=== PATIENT | male | born 1965 | race Caucasian/White ===

== ENCOUNTER → 2019-07-14 09:39 | Outpatient (BNVA) | payer OTHER, SELFPAY | PROVIDERS: Family Provider Family Medicine; PCP Family Medicine; Referring Provider Family Medicine; Visit Provider Specialist | DX: M25.562 Pain in left knee (principal); D16.22 Benign neoplasm of long bones of left lower limb | CPT/HCPCS: 73560; 73565 ==

== ENCOUNTER → 2021-05-17 13:08 | Outpatient (BNVA) | payer MEDICARE, SELFPAY | PROVIDERS: Family Provider Family Medicine; PCP Family Medicine; Visit Provider Registered Nurse Neonatal Intensive Care | DX: J02.0 Streptococcal pharyngitis (principal); K04.7 Periapical abscess without sinus | CPT/HCPCS: 87071; 87880 ==

== ENCOUNTER → 2023-03-25 18:31 | Outpatient (BNVA) | payer MEDICARE, SELFPAY | PROVIDERS: Family Provider Family Medicine; PCP Family Medicine; Visit Provider Registered Nurse Neonatal Intensive Care | DX: J02.9 Acute pharyngitis, unspecified (principal) | CPT/HCPCS: 87400; 87880 ==

== ENCOUNTER → 2023-07-30 14:36 | Outpatient (BNVA) | payer OTHER, SELFPAY | PROVIDERS: Family Provider Family Medicine; PCP Family Medicine; Referring Provider Family Medicine; Visit Provider Specialist | DX: M16.0 Bilateral primary osteoarthritis of hip | CPT/HCPCS: 73523; 99214 ==

== ENCOUNTER 2023-09-01 15:16 | Outpatient (CLI) | payer OTHER, SELFPAY ==
--- NOTE | 2023-09-01 15:15 | MR_ITS ---
WS: [id number] EXAMINATION: MR hip RT wo con* [id number] ORDER DATE: 09/01/2023 3:19 PM COMPARISON: None HISTORY: right hip pain CONTRAST: None. TECHNIQUE: Coronal STIR of the Pelvis. Coronal proton density, coronal T1, axial T2 fat sat, axial T1 , sagittal T2 fat sat, and sagittal T1 performed of the hip. . FINDINGS: Some images are degraded by motion. Patient to return for LEFT hip imaging. 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 Mild dysplastic changes of the acetabular roof with i nsufficient coverage of the femoral head. Moderate to advanced degenerative narrowing RIGHT hip. Bone -on-bone articulation in the anterior superior acetabulum. Mild hypertrophic changes about the acetab ulum. Normal bone marrow signal in the RIGHT femoral head and neck. Mild edema in the anterior superior melina tabulum slightly extending into the ilium. Similar appearance of the LEFT acetabulum and ilium. Os ac etabuli bilaterally. Mild degenerative arthritis RIGHT sacroiliac joint. Tiny joint effusion. Proximal femoral shafts are normal in appearance. Normal visualized pubic rami. Normal sacrum. No sac ral insufficiency fractures. IMPRESSION: 1. 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 2. Shallow dysplastic RIGHT acetabulum with insufficient coverage and os acetabuli. 3. Small amount of edema in the anterior superior acetabulum extending into the RIGHT ilium.
== END 2023-09-01 15:17 | disposition home or self-care (01) ==
LOC: RAD 15:17
PROVIDERS: Family Provider Family Medicine; PCP Family Medicine; Visit Provider Specialist
DX: M25.551 Pain in right hip (principal); M25.552 Pain in left hip; M16.11 Unilateral primary osteoarthritis, right hip
CPT/HCPCS: 73721

== ENCOUNTER → 2023-12-03 09:28 | Outpatient (BNVA) | payer OTHER, SELFPAY | PROVIDERS: Family Provider Family Medicine; PCP Family Medicine; Referring Provider Family Medicine; Visit Provider Internal Medicine | DX: E03.9 Hypothyroidism, unspecified (principal); R63.5 Abnormal weight gain; Z79.890 Hormone replacement therapy; Z68.38 Body mass index [BMI] 38.0-38.9, adult | CPT/HCPCS: 36415; 84439; 84443; 86376; 86800; 99204 ==

== ENCOUNTER 2024-02-04 07:55 | Outpatient (CLI) | payer OTHER, SELFPAY ==
[2024-02-04 08:42] LABS: Free T4 Free Thyroxine 1.38 ng/dL (0.82-1.77); Thyroid Stimulating Hormone 3.08 uIU/mL (0.27-4.20)
== END 2024-02-04 07:56 | disposition home or self-care (01) ==
PROVIDERS: Family Provider Family Medicine; PCP Family Medicine; Visit Provider Internal Medicine
DX: E03.9 Hypothyroidism, unspecified (principal)
CPT/HCPCS: 36415; 84439; 84443

== ENCOUNTER → 2024-02-13 07:57 | Outpatient (BNVA) | payer OTHER, SELFPAY | PROVIDERS: Family Provider Family Medicine; PCP Family Medicine; Visit Provider Internal Medicine | DX: E03.9 Hypothyroidism, unspecified (principal); R63.5 Abnormal weight gain; E06.3 Autoimmune thyroiditis; Z79.890 Hormone replacement therapy; Z68.37 Body mass index [BMI] 37.0-37.9, adult | CPT/HCPCS: 99214 ==

== ENCOUNTER 2024-04-28 08:29 | Outpatient (CLI) | payer OTHER, SELFPAY ==
--- NOTE | 2024-04-28 08:32 | MRR_ITS ---
PROCEDURE INFORMATION: Exam: MR Left Lower Extremity Joint Without Contrast; Hip Exam date and time: 04/28/2024 8:49 AM Age: 58 years old Clinical indication: Pain; Hip; Left; Additional info: Left hip pain TECHNIQUE: Imaging protocol: Magnetic resonance imaging of the left lower extremity joint without contrast. Exam focused on the hip. COMPARISON: CR XR hip BI m 5V wo/w pel* [id number] 07/30/2023 2:29 PM FINDINGS: Bones/joints: Bilateral hip joint alignment is normal. Severe bilateral hip joint space narrowing is greatest superiorly, with severe bilateral femoral head mild bilateral acetabular osteophyte formation. Left femoral head osteophytes extend along the femoral neck region. Mild bone marrow edema in the acetabular roofs is noted, right greater than left. No acute fracture is identified. No evidence of left hip joint effusion. Small right hip joint effusion. Mild subcortical cystic changes in the left acetabular roof with extension into the inferior left iliac bone appear benign. Severe thinning of the articular cartilage of the left femoral head and acetabulum is noted. Regions of well corticated ossification anterior to the left femoral head are noted, for example on series 801, image 21, compatible with incomplete union of the acetabular ossification center versus old fracture fragments. Labrum: Extensive tearing of the anterior superior left acetabular labrum is identified on the small [id number] images. TENDONS: Tendons of iliopsoas group: Unremarkable. No evidence of tear. Tendons of medial compartment of thigh: Unremarkable. No evidence of tear. Tendons of lateral rotators of hip: Unremarkable. No evidence of tear. Tendons of gluteal group: Unremarkable. No evidence of tear. Soft tissues: An ovoid circumscribed T1 hypointense nodule in the fat adjacent to the sigmoid colon on the left is identified on series 801, image 12 measuring 0.9 cm in diameter in the axial plane by 1.6 cm superior to inferior with corresponding intermediate signal intensity on the coronal T2 fat saturation sequence on series 601, image 19. MR/MR hip LT wo con* [id number] IMPRESSION: 1. No acute left hip findings. 2. Bilateral hip primary osteoarthritic changes are severe. 3. 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 4. Tear of the left acetabular labrum. 5. There is an indeterminate ovoid nodular structure adjacent to the left lateral aspect of the sigmoid colon, not definitively representing a normal lymph node. Consider correlation with CT pelvis versus MRI pelvis with and without contrast for further evaluation.
== END 2024-04-28 08:30 | disposition home or self-care (01) ==
LOC: RAD 08:30
PROVIDERS: Family Provider Family Medicine; PCP Family Medicine; Visit Provider Nurse Practitioner Family
DX: Z01.89 Encounter for other specified special examinations (principal); M16.0 Bilateral primary osteoarthritis of hip; R93.89 Abnormal findings on diagnostic imaging of other specified body structures; M25.752 Osteophyte, left hip; S73.192A Other sprain of left hip, initial encounter; X58.XXXA Exposure to other specified factors, initial encounter
CPT/HCPCS: 73721

== ENCOUNTER 2024-05-07 17:41 | Outpatient (CLI) | payer OTHER, SELFPAY ==
[2024-05-07 23:20] LABS: Free T4 Free Thyroxine 1.44 ng/dL (0.82-1.77)
== END 2024-05-07 17:42 | disposition home or self-care (01) ==
PROVIDERS: PCP Family Medicine; Visit Provider Internal Medicine
DX: E03.9 Hypothyroidism, unspecified (principal)
CPT/HCPCS: 36415; 84439; 84443

== ENCOUNTER → 2024-05-11 11:50 | Outpatient (BNVA) | payer OTHER, SELFPAY | PROVIDERS: PCP Family Medicine; Visit Provider Internal Medicine | DX: R63.5 Abnormal weight gain; E06.3 Autoimmune thyroiditis; Z79.890 Hormone replacement therapy; Z68.38 Body mass index [BMI] 38.0-38.9, adult | CPT/HCPCS: 99214 ==

== ENCOUNTER → 2024-06-02 08:51 | Outpatient (BNVA) | payer OTHER, SELFPAY | PROVIDERS: PCP Family Medicine; Visit Provider Specialist | DX: M16.0 Bilateral primary osteoarthritis of hip (principal); E66.9 Obesity, unspecified; Z68.38 Body mass index [BMI] 38.0-38.9, adult | CPT/HCPCS: 73523; 99214 ==

== ENCOUNTER → 2024-06-09 10:46 | Outpatient (BNVA) | payer MEDICARE, SELFPAY | PROVIDERS: PCP Family Medicine; Visit Provider Registered Nurse | DX: I10 Essential (primary) hypertension (principal) | CPT/HCPCS: 80061 ==

== ENCOUNTER 2024-06-18 15:15 | Emergency (ER) | payer MEDICARE, SELFPAY ==
[2024-06-18] VITALS (7 sets, daily range): BP systolic 117–135; BP diastolic 70–78; PULSE 68–78; RESP 18–20; TEMP 36.5; O2SAT 86–98
--- NOTE | 2024-06-18 15:17 | XRR_ITS ---
PROCEDURE INFORMATION: Exam: XR Chest Exam date and time: 06/18/2024 3:32 PM Age: 58 years old Clinical indication: Cough; Additional info: Cough/congestion TECHNIQUE: Imaging protocol: Radiologic exam of the chest. Views: 1 view. COMPARISON: No relevant prior studies available. FINDINGS: Lungs: Unremarkable. No consolidation. Pleural spaces: Unremarkable. No pleural effusion. No pneumothorax. Heart/Mediastinum: Unremarkable. No cardiomegaly. Bones/joints: Unremarkable. XR/XR chest 1V portable [id number] IMPRESSION: No acute findings.
[2024-06-18 16:56] LABS: Covid PCR NEGATIVE (Negative); Influenza A NEGATIVE (Negative); Influenza B NEGATIVE (Negative); Respiratory Syncytial Virus Ce NEGATIVE (Negative)
--- NOTE | 2024-06-18 17:57 | ED_ITS ---
HPI - SOB/Dyspnea 2 General: Chief Complaint: Shortness of Breath/Dyspnea Stated Complaint: coughing/chest congestion Time Seen by Provider: 06/18/24 17:37 Source: patient Mode of arrival: ambulatory Limitations: no limitations History of Present Illness: HPI Narrative: Patient is a 58-year-old male who presents the emergency department complaining of cough and shortness of breath for the past week. Denies history of asthma or COPD, or any other pertinent past medical history. Cough has become more more productive, he has used 1 nebulized breathing treatment at home but this did not help very much. He is not reporting any fever, but does state that he has been having some vomiting and diarrhea though the symptoms have improved. He also was concerned that he had SpO2 reading at home of the mid 70s, reading is low 90s upper 80s here in the ED, however this is with bad waveform and with head probe was found to be on 96% room air. He is reporting some pleuritic chest pain from coughing, denies any pertinent cardiac history. He does have a history of recurrent sinus infections, he comments that he feels like something is in his chest and he cannot cough it up. No other symptoms or pertinent historical factors noted at this time. MD elicited complaint: shortness of breath and cough Onset (ago): day(s) Timing: constant and progressively worsening Severity: moderate Exacerbating factors: coughing Relieving factors: nothing Associated symptoms: Reports vomiting; Deny abdominal pain, chest pain, fever(s), lightheadedness, nausea or palpitations Treatment prior to arrival: bronchodilator Related Data Home Medications ?Medication ?Instructions ?Recorded ?Confirmed [id number] 149-hyal ac PO 07/14/19 06/09/24 [Glucos Chond Cplx Advanced] cholecalciferol (vitamin D3) 50 50 mcg PO DAILY 06/09/24 mcg (2,000 unit) capsule hydrochlorothiazide 12.5 mg capsule 12.5 mg PO DAILY 0 10/11/20 06/09/24 Previous Rx's ?Medication ?Instructions ?Recorded fluticasone propionate 50 1 spray intranasal BID #16 g yolie 10/11/20 mcg/actuation nasal spray,suspension (Flonase Allergy Relief) albuterol sulfate 90 mcg/actuation 2 puff inhalation Q 6H PRN 08/17/21 aerosol inhaler shortness of breath or wheez ing #8.5 grams levothyroxine 175 mcg tablet 175 mcg PO DAILY #30 tabs 05/11/24 lisinopril 5 mg tablet 5 mg PO DAILY #90 tabs 06/09 atorvastatin 80 mg tablet See Rx Instructions .Route 0 06/14/24 .COMPLEX #90 tabs albuterol sulfate 90 mcg/actuation 1 inh inhalation Q6 H PRN shortness 06/18/24 aerosol inhaler of breath or wheezing #6.7 g yolie doxycycline hyclate 100 mg tablet 100 mg PO BID 10 day s #20 tabs 06/18/24 prednisone 20 mg tablet 60 mg (3 x 20 mg) PO ONCE 5 days 06/18/24 #15 tabs Allergies Allergy/AdvReac Type Severity Reaction Status Date / Time No Known Allergies Allergy Verified 06/18/24 15:25 Review of Systems 2 General: Reports: 10 or more systems reviewed and unremarkable except in HPI and below Const: Denies: fever(s), chills or fatigue Eyes: Denies: change in vision ENMT: Denies: throat pain, ear or mastoid pain or nasal discharge Card: Denies: chest pain, palpitations, swelling of feet/ankles or lightheadedness Resp: Reports: dyspnea and productive cough; Denies: wheezing GI: Reports: vomiting and diarrhea; Denies: abdominal pain, nausea or constipation : Denies: flank pain, difficulty urinating, dysuria or urinary frequency Musc: Denies: neck pain, back pain or joint pain Skin/Breast: Denies: rash Neuro: Denies: headache(s), numbness in extremities or weakness in extremities PFSH ED 2 PFSH: Medical History Hypertension Hypothyroid Osteoarthritis Acute sinusitis Surgical History History of appendectomy Family History Family/Other Dementia Denies family history of Diabetes CAD (coronary artery disease) Clotting disorder Hyperlipidemia Psychiatric illness Chronic kidney disease (CKD) Suicide Anesthesia complication Bleeding disorder Family history of premature coronary artery disease Lung disease Cancer Hypertension Stroke Social History Smoking and tobacco/nicotine status: never used tobacco/nicotine Quit status (tobacco/nicotine): has quit using Year quit tobacco: 2014 Alcohol intake: never Substance/Drug Use: never Adopted: No Caregiver/support person: No Lives independently: No Household members: spouse service: Yes status: Discharged branch: [place] Assignments: Outside [employer] ([employer]) Current occupational status: retired Sexually active: Yes Do you think of yourself as: Straight/Heterosexual Current gender identity: Male Physical Exam 2 Const: COMMON NORMALS: no acute distress, patient oriented x3 and no limitations GENERAL APPEARANCE: cooperative, comfortable and well developed ORIENTATION/CONSCIOUSNESS: Yes awake, Yes oriented to person, Yes oriented to place and Yes oriented to time OTHER: Actively coughing, no acute respiratory distress HENMT: COMMON NORMALS: normocephalic, atraumatic, hearing grossly normal bilaterally, moist oral mucous membranes and oropharynx normal HEAD & SCALP: normocephalic and atraumatic Eye: COMMON NORMALS: Equal, round and reactive pupils present, EOMs intact bilaterally and conjunctivae normal CONJUNCTIVA: Yes conjunctivae normal P UPIL: Yes Equal, round and reactive pupils present Neck/C-Spine: COMMON NORMALS: full ROM, supple and no JVD Chest: COMMONS NORMALS: normal inspection of the chest Resp: COMMON NORMALS: normal respiratory effort, No retractions and No use of accessory muscles AUSCULTATION: wheezes expiratory wheezes Cardio: COMMON NORMALS: no JVD, regular rate, regular rhythm, No clicks present (Cardio), No murmurs present (Cardio) and No rub (Cardio) RATE: r egular rate RHYTHM: regular rhythm GI: COMMON NORMALS: Normal to inspection, nondistended, normoactive bowel sounds present, Soft to palpation and non-tender AUSCULTATION: Yes normoactive bowel sounds PALPATION: Yes Soft to palpation RECTAL EXAM: Yes deferred Extremity: COMMON NORMALS: normal to inspection, full ROM, capillary refill normal and no pedal edema Neuro: COMMON NORMALS: patient oriented x3, moves all extremities, no focal motor deficits and no sensory deficits noted SENSORIUM/ORIENTATION: Yes oriented to person, Yes oriented to place and Yes oriented to time Psych: COMMON NORMALS: mental status grossly normal and Normal thought process present THOUGHT PROCESS: Normal thought process present Skin: COMMON NORMALS: no rashes or lesions noted GENERAL SKIN EXAM: no rashes or lesions noted Course 2 Vital Signs: Vital signs: Vital Signs Temperature 97.7 F 06/18/24 15:21 Pulse Rate 74 06/18/24 18:35 Respiratory Rate 18 06/18/24 18:29 Blood Pressure 130/78 06/18/24 18:30 Pulse Oximetry 86 L 06/18/24 19:21 Oxygen Delivery Me thod Room Air 06/18/24 18:30 MDM - SOB/Dyspnea Medical Decision Making Patient presented with 5 days of cough and shortness of breath. He had no pertinent past medical history to report. He has tried a couple of breathing treatments at home, states this has not helped much. There were reports by family at home that his SpO2 was running in the 70s and 80s, here was found to be low however it was deemed that he was having a poor waveform. He was placed on a temporal probe for SpO2, and was noted to be in the mid 90s. On exam he did have some diffuse expiratory wheezing, overall appeared nontoxic and in no acute respiratory distress however. He was given a breathing treatment here, states that he felt much better after this. His lab work all essentially was unremarkable, he was negative for any viral illness here. His ABG was also unremarkable. At this time I think that this is an acute bronchitis with reactive airways disease, however could be an early COPD thus informed him he needs to closely follow-up with primary care for further outpatient spirometry and other workup. At this time we will treat with doxycycline as well as inhaler and steroids, and 1 more breathing treatment is given prior to discharge. Strict return precautions were given, I even offered patient option to admit for observation but he states he would rather treat at home. His oxygen prior to discharge noted to be in the low 90s, however this was while he was sleeping and it does raise when he is awake. Verbalized understanding for return precautions. Lab Data 06/18/24 19:59 06/18/24 18:01 Labs/Radiology: Radiology Impressions Chest X-Ray 06/18/24 15:17 IMPRESSION: No acute findings. Laboratory Results WBC 13.34 10^3/uL (3.29-11.43) H 06/18/24 19:59 Corrected WBC Cancelled 06/18/24 18:01 RBC 4.45 10^6/uL (3.85-5.65) 06/18/24 19:59 Hgb 12.90 g/dL (11.27-16.99) 06/18/24 19:59 Hct 39.0 % (37-53) 06/18/24 19:59 MCV 87.6 fl (82-101) 06/18/24 19:59 MCH 29.0 pg (27-33) 06/18/24 19:59 MCHC 33.1 g/dL (30-55) 06/18/24 19:59 RDW 13.1 % (12.1-15.1) 06/18/24 19:59 Plt Count 322 10^3/cmm (157-399) 06/18/24 19:59 MPV 9.6 fL (7.4-10.4) 06/18/24 19:59 Gran % Cancelled 06/18/24 18:01 Neut % (Auto) 70.5 % 06/18/24 19:59 Lymph % (Auto) 21.8 % 06/18/24 19:59 [place] % (Auto) 6.4 % 06/18/24 19:59 Eos % (Auto) 0.7 % 06/18/24 19:59 Baso % (Auto) 0.3 % 06/18/24 19:59 Neut # (Auto) 9.40 10^3/uL (1.8-7.7) H 06/18/24 19:59 Lymph # (Auto) 2.9 10^3/uL (0.8-4.8) 06/18/24 19:59 [place]yer # (Auto) 0.9 10^3/uL (0.2-0.9) 06/18/24 19:59 Eos # (Auto) 0.1 10^3/uL (0.0-0.8) 06/18/24 19:59 Baso # (Auto) 0.0 10^3/uL (0.0-0.1) 06/18/24 19:59 Absolute Gran (auto) Cancelled 06/18/24 18:01 Nucleated RBC % (auto) 0 % 06/18/24 19:59 Nucleated RBCs # 0.0 /100WBC 06/18/24 19:59 D-Dimer 0.51 ug/mLFEU (0-0.59) 06/18/24 18:01 Specimen Type Arterial 06/18/24 18:17 Sample Site Radial, left 06/18/24 18:17 ABG pH 7.46 (7.35-7.45) H 06/18/24 18:17 ABG pCO2 38.1 mmHg (35-45) 06/18/24 18:17 ABG pO2 54.6 mmHg (80.0-100.0) L 06/18/24 18:17 ABG PO2/FiO2 Ratio 260 06/18/24 18:17 ABG HCO3 27.3 mmol/L (22-26) H 06/18/24 18:17 ABG O2 Saturation 90.3 06/18/24 18:17 ABG Base Excess 3.4 mmol/L (-2.0-2.0) H 06/18/24 18:17 Humberto Test Pos 06/18/24 18:17 A-a O2 Gradient 6.3 mmHg (5-10) 06/18/24 18:17 Hematocrit 39.8 % (42-52) L 06/18/24 18:17 Hgb O2 Saturation 89.1 % (95-100) L 06/18/24 18:17 Carboxyhemoglobin 1.1 %THgb (0.4-20.1) 06/18/24 18:17 Methemoglobin 0.2 % (0.4-1.5) L 06/18/24 18:17 Total Hemoglobin 13.0 g/dL (14-18) L 06/18/24 18:17 Sodium 137.0 mmol/L (131-143) 06/18/24 18:17 Potassium 3.5 mmol/L (3.5-5.0) 06/18/24 18:17 Glucose 101.0 mg/dL (70-115) 06/18/24 18:17 Ionized Calcium 1.1 mmol/L (1.1-1.4) 06/18/24 18:17 O2 Delivery Device Room air 06/18/24 18:17 FiO2 21.0 % 06/18/24 18:17 Manager Supply Chain ID glc 06/18/24 18:17 Sodium 137 mmol/L (136-145) 06/18/24 18:01 Potassium 4.0 mmol/L (3.5-5.1) 06/18/24 18: Chloride 98 mmol/L (98-107) 06/18/24 18:01 Carbon Dioxide 28 mmol/L (22-29) 06/18/24 18: Anion Gap 15.0 (5-19) 06/18/24 18:01 BUN 16 mg/dL (6-20) 06/18/24 18: Creatinine 0.9 mg/dL (0.7-1.2) 06/18/24 18: GFR Calculation 87.0 mL/min (90-130) L 06/18/24 18: Glucose 97 mg/dL (65-115) 06/18/24 18: Calculated Osmolality 285 mOsm/kg (285-295) 06/18/24 18: Calcium 9.1 mg/dL (8.5-10.5) 06/18/24 18: Total Bilirubin 0.6 mg/dL (0.15-1.2) 06/18/24 18: AST 21 U/L (0-40) 06/18/24 18: ALT 42 U/L (0-41) H 06/18/24 18:01 Alkaline Phosphatase 97 U/L (40-130) 06/18/24 18:01 Total Protein 7.6 g/dL (6.6-8.7) 06/18/24 18: Albumin 4.1 g/dL (3.5-5.2) 06/18/24 18: Globulin 3.5 g/dL (1.3-4.6) 06/18/24 18:01 Urine Color Dark yellow (Yellow) A 06/18/24: Urine Appearance Cloudy (CLEAR) A 06/18/24 20:39 Urine pH 6.0 (5-7) 06/18/24 20:39 Ur Specific [place] 1.031 (1.005-1.030) H 06/18/24 20: Urine Protein 1+ (Negative) A 06/18/24 20:39 Urine Glucose (UA) Negative (Normal) 06/18/24 20:39 Urine Ketones Trace (Negative) 06/18/24 20:39 Urine Blood Negative (Negative) 06/18/24 20:39 Urine Nitrate Negative (Negative) 06/18/24 20:39 Urine Bilirubin Negative (Negative) 06/18/24 20:39 Urine Urobilinogen 1.0 mg/dL (Negative) 06/18/24 20:39 Ur Leukocyte Esterase 1+ (Negative) A 06/18/24 20:39 Urine RBC 6-10 /hpf (0-2) 06/18/24 20:39 Urine WBC 11-20 /hpf (0-5) H 06/18/24 20:39 Ur Squamous Epith Cells 6-10 /hpf (0-5) 06/18/24 20:39 Amorphous Sediment Not Reportable 06/18/24 20:39 Urine Bacteria None seen /hpf (NONE) 06/18/24 20:39 Hyaline Casts 8.26 /lpf 06/18/24 20:39 Urine Mucus 3+ /hpf 06/18/24 20:39 Coronavirus (PCR) Negative (Negative) 06/18/24 15:28 Influenza A (PCR) Negative (Negative) 06/18/24 15:28 Influenza Type B (PCR) Negative (Negative) 06/18/24 15:28 RSV (PCR) Negative (Negative) 06/18/24 15:28 All radiology interpretation(s) finalized by discharge Discharge Plan Discharge Patient Disposition: Home Clinical Impression: Acute bronchitis Qualifiers: Bronchitis organism: unspecified organism Qualified Code(s): J20.9 - Acute bronchitis, unspecified RAD (reactive airway disease) Qualifiers: Asthma severity: mild Asthma persistence: intermittent Asthma complication type: with acute exacerbation Qualified Code(s): J45.21 - Mild intermittent asthma with (acute) exacerbation Condition: Stable Prescriptions: New prednisone 20 mg tablet 60 mg PO ONCE 5 Days Qty: 15 0RF albuterol sulfate 90 mcg/actuation HFA aerosol inhaler 1 inh inhalation Q6H PRN (Reason: shortness of breath or wheezing) Qty: 6.7 0RF doxycycline hyclate 100 mg tablet 100 mg PO BID 10 Days Qty: 20 0RF No Action wyxkhvjx-nfeoa-quw 149-hyal ac PO hydrochlorothiazide 12.5 mg capsule 12.5 mg PO DAILY cholecalciferol (vitamin D3) 50 mcg (2,000 unit) capsule 50 mcg PO DAILY fluticasone propionate [Flonase Allergy Relief] 50 mcg/actuation spray,suspension 1 spray intranasal BID Qty: 16 0RF Rx Instructions: administer into each nostril albuterol sulfate 90 mcg/actuation HFA aerosol inhaler 2 puff inhalation Q6H PRN (Reason: shortness of breath or wheezing) Qty: 8.5 0RF levothyroxine 175 mcg tablet 175 mcg PO DAILY Qty: 30 3RF lisinopril 5 mg tablet 5 mg PO DAILY Qty: 90 1RF atorvastatin 80 mg tablet See Rx Instructions .ROUTE .COMPLEX Qty: 90 0RF Dose Instruction: Take 1 tablet by mouth once daily Rx Instructions: Take 1 tablet by mouth once daily Discharge Orders: Discharge ED (Routine); Ordered 06/18/24 Ordered By: Clayton Muñoz Referrals: Ha Corral [Primary Care Provider] - Patient Instructions: Acute Bronchitis (ED), Reactive Airways Disease (ED) Activity Restrictions/Additional Instructions: Doxycycline as prescribed. Use albuterol inhaler as well as continue breathing treatments at home. Prednisone. Please keep monitoring her O2 at home, if it drops below 90% frequently and you start having severe shortness of breath or other concerning symptoms please return to the emergency department immediately as we discussed. Drink plenty of fluids. Follow-up closely with primary care for further outpatient evaluation. Print Language: Nigerian Coding Level of Care Code ED Evaluation Advisor for Quin Urrutia
[2024-06-18] MEDS: ipratropium-albuterol 3 mL Neb INHALATION (18:18)
[2024-06-18 18:24] LABS: D Dimer 0.51 ug/mLFEU (0-0.59)
[2024-06-18 18:27] LABS: Alanine Aminotransferase 42 U/L (0-41); Albumin Level 4.1 g/dL (3.5-5.2); Alkaline Phosphatase 97 U/L (40-130); Aspartate Amino Transferase 21 U/L (0-40); Blood Urea Nitrogen 16 mg/dL (6-20); Calcium 9.1 mg/dL (8.5-10.5); Carbon Dioxide 28 mmol/L (22-29); Chloride 98 mmol/L (98-107); Creatinine Clr Calc Pharmacy 130.5672; Globulin 3.5 g/dL (1.3-4.6); Glucose 97 mg/dL (65-115); Osmolality Calculated 285 mOsm/kg (285-295); Sodium 137 mmol/L (136-145); Total Bilirubin 0.6 mg/dL (0.15-1.2); Total Protein 7.6 g/dL (6.6-8.7)
[2024-06-18 18:29] LABS: ABG PCO2 38.1 mmHg (35-45); ABG PH Result 7.46 (7.35-7.45); Alveolar-Arterial Oxygen Gradi 6.3 mmHg (5-10); Arterial Blood Gas Hematocrit 39.8 % (42-52); Base Excess ABG 3.4 mmol/L (-2.0-2.0); Blood Gas Allen Test Pos; Blood Gas Operator Identificat glc; Blood Gas Sample Site Radial, left; Blood Gas Sample Type Arterial; Carboxyhemoglobin 1.1 %THgb (0.4-20.1); HCO3 ABG 27.3 mmol/L (22-26); HGB O2 Sat 89.1 % (95-100); Ionized Calcium Level - ABG 1.1 mmol/L (1.1-1.4); Methemoglobin 0.2 % (0.4-1.5); Oxygen Device ROOM AIR; Oxygen Saturation ABG 90.3; PO2 ABG 54.6 mmHg (80.0-100.0); PO2 FiO2 Ratio Arterial Blood 260; Potassium Level - ABG 3.5 mmol/L (3.5-5.0)
--- NOTE | 2024-06-18 18:40 | ECG_ITS ---
[facility]: 2024-[facility]18 Pat Name: Wicho Mclain Department: Room: Gender: Male Telephone Cleaner: : 1965 Requested By: Clayton Calle Order Number: [id number] Reading MD: KIRSTY ESPINOZA Measurements Intervals [place] Rate: 81 P: 72 [place]: 180 QRS: -2 QRSD: 94 T: 81 QT: 374 QTc: 435 Interpretive Statements SINUS RHYTHM MINIMAL ST DEPRESSION [0.025+ mV ST DEPRESSION] No previous ECG available for comparison Electronically Signed On 06-20-2024 21:03:58 RN QUALITY by KIRSTY ESPINOZA [id number]
[2024-06-18 20:03] LABS: Basophils % 0.3 %; Eosinophils # 0.1 10^3/uL (0.0-0.8); Eosinophils % 0.7 %; Lymphocytes # 2.9 10^3/uL (0.8-4.8); Lymphocytes % 21.8 %; Mean Corpuscular HGB Conc 33.1 g/dL (30-55); Mean Corpuscular Volume 87.6 fl (82-101); Mean Platelet Volume 9.6 fL (7.4-10.4); Monocytes # 0.9 10^3/uL (0.2-0.9); Monocytes % 6.4 %; Neutrophils % 70.5 %; Nucleated Red Blood Cells % 0 %; Platelet Count 322 10^3/cmm (157-399); Red Blood Count 4.45 10^6/uL (3.85-5.65); Red Cell Distribution Width 13.1 % (12.1-15.1); White Blood Count 13.34 10^3/uL (3.29-11.43)
[2024-06-18 20:33] LABS: Slide Review Slide Review Perform
[2024-06-18 20:49] LABS: Bilirubin Urine Negative (Negative); Blood Urine Negative (Negative); Glucose Urine UA Negative (Normal); Ketones Urine Trace (Negative); Leukocyte Esterase Urine 1+ (Negative); Nitrate Urine Negative (Negative); Protein Urine 1+ (Negative); Urine Appearance Cloudy (CLEAR); Urine Color Dark Yellow (Yellow)
[2024-06-18 20:51] LABS: Add Urine Microscopic? YES; Bacteria Urine None Seen /hpf; Hyaline Casts Urine 8.26 /lpf
[2024-06-18] MEDS: doxycycline 100 mg Tablet PO (20:51)
[2024-06-18] MEDS: dexamethasone 10 mg/mL INJ IVP (20:57)
[2024-06-18 21:36] LABS: Specific Gravity, Urine 1.031 (1.005-1.030); UA Slide Review UA Slide Review Perf
[2024-06-18 21:37] LABS: Add Urine Culture? Yes; Mucus Urine 3+ /hpf
== END 2024-06-18 21:43 | disposition home or self-care (01) ==
PROVIDERS: Physician Assistant; Emergency Provider Physician Assistant; PCP Family Medicine
DX: J20.9 Acute bronchitis, unspecified (principal); J45.21 Mild intermittent asthma with (acute) exacerbation; Z11.52 Encounter for screening for COVID-19; Z87.891 Personal history of nicotine dependence; I10 Essential (primary) hypertension
CPT/HCPCS: 36415; 36600; 71045; 80051; 80053; 81001; 82330; 82805; 85025; 85378; 87077; 87086; 87186; 87637; 93005; 94640; 96374; 99285; J1100

== ENCOUNTER → 2024-06-25 12:02 | Outpatient (BNVA) | payer MEDICARE, SELFPAY | PROVIDERS: PCP Family Medicine; Visit Provider Specialist | DX: M16.11 Unilateral primary osteoarthritis, right hip (principal) | CPT/HCPCS: 20610; 77002; J1100; J2795; J3301 ==

== ENCOUNTER → 2024-07-23 11:42 | Outpatient (BNVA) | payer OTHER, SELFPAY | PROVIDERS: PCP Family Medicine; Visit Provider Specialist | DX: M16.0 Bilateral primary osteoarthritis of hip (principal) | CPT/HCPCS: 20610; 77002; J1100; J2795; J3301; J9999 ==

== ENCOUNTER 2024-07-28 14:40 | Outpatient (CLI) | payer OTHER, SELFPAY ==
--- NOTE | 2024-07-28 14:43 | CT_ITS ---
WS: [id number] CT ABDOMEN AND PELVIS WITH CONTRAST HISTORY: FOLLOW UP MASS TECHNIQUE: Imaging performed of the abdomen and pelvis with IV contrast. Single phase imaging of the abdomen. Coronal and sagittal reformats are submitted. All CT scans at [facility] use at least one of these dose optimization techniques: automated exposure control; mA and/or kV adjustment per patient size (includes targeted exams where dose is matched to clinical indication); or iterative reconstruction. IV CONTRAST: Omnipaque 350; 100 mL IV. Oral contrast: No DLP: 1248.65 mGy.cm COMPARISON: MRI 04/28/2024 Lower thorax: 5 mm noncalcified nodule RIGHT lower lobe. Heart is normal size. No hiatal hernia. Liver/biliary system: Normal size with no intrahepatic dilatation. Gallbladder: Normal. No gallstones or wall thickening. No pericholecystic fluid. Pancreas: Normal size pancreas and pancreatic duct. No adjacent inflammation. Spleen: Normal size spleen. No mass or infarct. Adrenal glands: Normal. Right kidney: Normal. Left kidney: Normal. Aorta: Mild atherosclerosis with no aneurysm. Lymphadenopathy: None. Free fluid: None. GI tract: No GI tract obstruction. Normal stomach and small bowel. Prior appendectomy. No colitis. Abdominal wall: Fat containing umbilical hernia. Tiny umbilical hernia. Pelvis: No free fluid. Nodule in the LEFT pelvis associated with the sigmoid colon is identified. This is a very heavily calcified nodule measuring 14 mm and is benign. Minimally distended urinary bladder. Bones: Mild anterior wedging of T9. Advanced degenerative changes bilaterally at the hip joints. Bone upon bone with osteophytic ridging around the femoral heads and the acetabulum. Partial fusion of the LEFT SI joint. CT/CT abdomen pelvis w con* [id number] IMPRESSION: 1. Nodule within the LEFT pelvis seen on recent MRI corresponds to a densely c alcified nodule measuring 14 mm. This is benign and probably related to prior e piploic appendagitis or heavily calcified lymph node. 2. No evidence for acute diverticulitis. 3. Noncalcified 5 mm nodule RIGHT lower lobe. Recommend follow-up chest CT in 6 months.
[2024-07-28] MEDS: iohexol 350 mg/mL 500 mL Btl (per mL) IV (15:24)
== END 2024-07-28 14:41 | disposition home or self-care (01) ==
LOC: RAD 14:41
PROVIDERS: PCP Family Medicine; Visit Provider Family Medicine
DX: R19.09 Other intra-abdominal and pelvic swelling, mass and lump (principal); R91.1 Solitary pulmonary nodule; I70.0 Atherosclerosis of aorta; Z98.890 Other specified postprocedural states; K42.9 Umbilical hernia without obstruction or gangrene; M48.54XA Collapsed vertebra, not elsewhere classified, thoracic region, initial encounter for fracture; M16.0 Bilateral primary osteoarthritis of hip; R93.7 Abnormal findings on diagnostic imaging of other parts of musculoskeletal system
CPT/HCPCS: 74177

== ENCOUNTER 2024-08-06 08:27 | Outpatient (CLI) | payer OTHER, SELFPAY ==
[2024-08-06 09:27] LABS: Free T4 Free Thyroxine 1.82 ng/dL (0.82-1.77); Thyroid Stimulating Hormone 2.04 uIU/mL (0.27-4.20)
== END 2024-08-06 08:28 | disposition home or self-care (01) ==
LOC: LAB 08:28
PROVIDERS: PCP Family Medicine; Visit Provider Internal Medicine
DX: E03.9 Hypothyroidism, unspecified (principal)
CPT/HCPCS: 84439; 84443

== ENCOUNTER → 2024-08-25 11:17 | Outpatient (BNVA) | payer OTHER, SELFPAY | PROVIDERS: PCP Family Medicine; Visit Provider Specialist | DX: M16.0 Bilateral primary osteoarthritis of hip (principal) | CPT/HCPCS: 99214 ==

== ENCOUNTER → 2024-10-29 11:45 | Outpatient (BNVA) | payer OTHER, SELFPAY | PROVIDERS: PCP Family Medicine; Visit Provider Specialist | DX: M16.11 Unilateral primary osteoarthritis, right hip (principal) | CPT/HCPCS: 20610; 77002; J1100; J2795; J3301; J9999 ==

== ENCOUNTER → 2024-11-26 11:27 | Outpatient (BNVA) | payer OTHER, SELFPAY | PROVIDERS: PCP Family Medicine; Visit Provider Specialist | DX: M16.12 Unilateral primary osteoarthritis, left hip (principal) | CPT/HCPCS: 20610; 77002; J1100; J2795; J3301; J9999 ==

== ENCOUNTER → 2024-12-01 08:18 | Outpatient (BNVA) | payer OTHER, SELFPAY | PROVIDERS: PCP Family Medicine; Visit Provider Specialist | DX: M16.11 Unilateral primary osteoarthritis, right hip (principal) | CPT/HCPCS: 99213 ==

== ENCOUNTER → 2025-01-14 08:22 | Outpatient (BNVA) | payer OTHER, SELFPAY | PROVIDERS: PCP Registered Nurse; Visit Provider Registered Nurse | DX: E03.9 Hypothyroidism, unspecified (principal) | CPT/HCPCS: 84439; 84443 ==

== ENCOUNTER → 2025-01-21 09:36 | Outpatient (BNVA) | payer OTHER, SELFPAY | PROVIDERS: PCP Registered Nurse; Visit Provider Internal Medicine | DX: E03.9 Hypothyroidism, unspecified (principal); R63.5 Abnormal weight gain; E06.3 Autoimmune thyroiditis | CPT/HCPCS: 99214 ==

== ENCOUNTER → 2025-02-04 10:10 | Outpatient (BNVA) | payer OTHER, SELFPAY | PROVIDERS: PCP Registered Nurse; Visit Provider Specialist | DX: M16.11 Unilateral primary osteoarthritis, right hip (principal); E03.8 Other specified hypothyroidism; R63.5 Abnormal weight gain; E06.3 Autoimmune thyroiditis | CPT/HCPCS: 20610; 77002; 99213; J1100; J2795; J3301; J9999 ==

== ENCOUNTER → 2025-03-11 11:15 | Outpatient (BNVA) | payer OTHER, SELFPAY | PROVIDERS: PCP Registered Nurse; Visit Provider Specialist | DX: M16.0 Bilateral primary osteoarthritis of hip (principal) | CPT/HCPCS: 20610; 77002; J1100; J2795; J3301; J9999 ==

== ENCOUNTER → 2025-03-23 10:58 | Outpatient (BNVA) | payer OTHER, SELFPAY | PROVIDERS: PCP Registered Nurse; Visit Provider Specialist | DX: M16.0 Bilateral primary osteoarthritis of hip (principal) | CPT/HCPCS: 73502 ==

== ENCOUNTER 2025-03-23 11:53 | Outpatient (CLI) | payer OTHER, SELFPAY | END 2025-03-23 11:54 | disposition home or self-care (01) | LOC: LAB 11:54 | PROVIDERS: PCP Registered Nurse; Visit Provider Internal Medicine | DX: E03.9 Hypothyroidism, unspecified (principal) | CPT/HCPCS: 36415; 84439; 84443 ==

== ENCOUNTER → 2025-05-11 07:44 | Outpatient (BNVA) | payer OTHER, SELFPAY | PROVIDERS: PCP Registered Nurse; Referring Provider Specialist; Visit Provider Nurse Practitioner Family | DX: M16.0 Bilateral primary osteoarthritis of hip (principal) | CPT/HCPCS: 99204; 99214 ==